=== PATIENT | female | born 1945 | race Native Hawaiian/Other Pacific Islander ===

== ENCOUNTER 2022-08-17 16:00 | Emergency (ER) | payer OTHER ==
[~2022-08-17] VITALS: Ht 170.2 cm; Wt 49.5 kg
[2022-08-17 16:00] VITALS: TEMP 98.2
[2022-08-17 16:31] LABS: PLATELET COUNT 290 K/uL (152-353)
[2022-08-17 16:42] LABS: POTASSIUM 3.4 mmol/L (3.6-5.2)
[2022-08-17 17:50] VITALS: BP 108/54
[2022-08-18] MEDS ORDERED: ASCO500T18 PO (09:16)
[2022-08-18] MEDS ORDERED: AMLODIPINE BESYLATE PO (09:16)
[2022-08-18] MEDS ORDERED: CITA20TA2 PO (09:17)
[2022-08-18] MEDS ORDERED: CETI10TA PO (09:18)
[2022-08-18] MEDS ORDERED: VITAMIN D1000 UNI1 PO (09:19)
[2022-08-18] MEDS ORDERED: MULTIVITAMIN1 TA1 PO (09:20)
[2022-08-18] MEDS ORDERED: DONEPEZIL HYDRO10 M1 PO (09:20)
[2022-08-18] MEDS ORDERED: PANTOPRAZOLE 40MG TA PO (09:21)
[2022-08-18] MEDS ORDERED: QUET25TA2 PO (09:21)
[2022-08-18] MEDS ORDERED: ZINC50 M1 PO (09:22)
[2022-08-18] MEDS ORDERED: BUSPIRONE10 MG PO (09:23)
[2022-08-18] MEDS ORDERED: BOOST PO (09:23)
[2022-08-18] MEDS ORDERED: FLONASE AL50 MCG/ACT NAS (09:24)
[2022-08-18] MEDS ORDERED: [UNRECOGNIZED DRUG - OTHER] PO (09:24)
[2022-08-18] MEDS ORDERED: IPRAAER INH (09:25)
[2022-08-18] MEDS ORDERED: DICLOFENAC SODIUM1 % TOP (09:26)
[2022-08-18] MEDS ORDERED: IPRATROPIUM/ INH (09:27)
[2022-08-18] MEDS ORDERED: TYLENOL325 MG PO (09:28)
[2022-09-01] MEDS ORDERED: NORVASC 5MG TAB PO (10:22)
[2022-09-01] MEDS ORDERED: ESCI10TA PO (10:23)
[2022-09-01] MEDS ORDERED: DOCU100C10 PO (10:23)
[2022-09-01] MEDS ORDERED: DIVALPROEX250 MG PO (10:23)
[2022-09-01] MEDS ORDERED: Voltaren GEL 1% 100G TOP (10:23)
[2022-09-01] MEDS ORDERED: CETI10TA PO (10:23)
[2022-09-01] MEDS ORDERED: PANTOPRAZOLE 40MG TA PO (10:24)
[2022-09-01] MEDS ORDERED: QUET25TA2 PO (10:24)
[2022-09-01] MEDS ORDERED: MEGE40TA32 PO (10:24)
== END 2022-08-17 17:55 | disposition still patient (30) ==
LOC: ED 16:04
PROVIDERS: Family Medicine
DX: R45.6 Violent behavior (principal); Z02.79 Encounter for issue of other medical certificate
CPT/HCPCS: 80053; 81002; 85027; 87635; 93005; 99283; U0003